=== PATIENT | female | born 1955 | race Caucasian/White ===

== ENCOUNTER → 2016-12-03 | Outpatient (CLI) | payer MEDICARE ==
--- NOTE | 2016-12-03 10:22 | Diagnostic Imaging Report ---
PROCEDURE: MRI left upper extremity without contrast. TECHNIQUE: Multiplanar, multisequence non contrast-enhanced MRI of the left upper extremity was accomplished. INDICATION: Left shoulder pain for 5 months. No known injury. There is no rotator cuff impingement. There is slight abnormal signal within the supraspinatus tendon. No tear is seen. The labrum is intact. There is minimal joint fluid. There is no fluid in the subacromial subdeltoid bursa. There is no acute bony abnormality. IMPRESSION: There is mild tendinosis of the supraspinatus tendon with no other significant abnormality seen. Dictated by: Dictated on workstation # [id number]
== END ==
LOC: RAD 09:20
PROVIDERS: ATTEND Orthopaedic Surgery
DX: M75.112 Incomplete rotator cuff tear or rupture of left shoulder, not specified as traumatic (principal)
CPT/HCPCS: 73221

== ENCOUNTER → 2016-12-10 | Outpatient (CLI) | payer MEDICARE ==
--- NOTE | 2016-12-10 11:20 | Diagnostic Imaging Report ---
PROCEDURE: MR imaging cervical spine without contrast. TECHNIQUE: Multiplanar, multisequence MR imaging of the cervical spine was performed without contrast. INDICATION: Cervical radiculopathy. COMPARISON: None available. FINDINGS: Alignment of the cervical spine is well maintained. Alignment of the atlantooccipital joint is well maintained. Mild endplate degenerative changes of C5 and C6 are identified. Otherwise, vertebral body heights are well-maintained. Mild disc space height loss at C5/C6 and C6/C7. Otherwise, disc space heights are well-maintained. The cervicomedullary junction is unremarkable. No abnormal signal identified within the spinal cord. The paraspinal soft tissues are unremarkable. C2/C3: No significant central canal or neural foraminal stenosis. C3/C4: No significant central canal or neural foraminal stenosis. C4/C5: No significant central canal or neural foraminal stenosis. C5/C6: Mild disc space height loss. Small diffuse disc bulge. Bilateral uncovertebral joint hypertrophy. There is resulting effacement of the ventral subarachnoid space with slight flattening of the ventral spinal cord without cord signal abnormality. Mild bilateral neural foraminal stenosis, left greater than right. C6/C7: Disc space height loss. Small diffuse disc bulge. There is resulting effacement of the ventral subarachnoid space without cord deformity. No abnormal signal within the spinal cord. Bilateral uncovertebral joint hypertrophy. There is resulting mild left neural foraminal stenosis. No significant right neural foraminal stenosis. C7/T1: No significant central canal or neural foraminal stenosis. IMPRESSION: No acute osseous abnormality with mild multilevel degenerative changes as described above. This is greatest at C5/C6 and C6/C7. Dictated by: Dictated on workstation # [id number]
== END ==
LOC: RAD 07:39
PROVIDERS: ATTEND Orthopaedic Surgery
DX: M54.12 Radiculopathy, cervical region (principal)
CPT/HCPCS: 72141